=== PATIENT | male | born 1995 | race Caucasian/White ===

== ENCOUNTER 2017-11-12 11:25 | Emergency (ER) | payer BC ==
--- NOTE | 2017-11-12 11:37 | UC ---
Laceration HPI - History Of Current Complaint Stated Complaint: SUTURE REMOVAL Time Seen by Provider: 11/12/17 11:36 Discharge - Discharge Plan Referrals: No Primary Care Phys,NOPCP [Primary Care Provider] -
[2017-11-12 11:54] VITALS: BP 121/79
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
== END 2017-11-12 12:17 | disposition home or self-care (01) ==
LOC: UCEAST 11:25
DX: S01.01XD Laceration without foreign body of scalp, subsequent encounter (principal); X58.XXXD Exposure to other specified factors, subsequent encounter; Y92.9 Unspecified place or not applicable
CPT/HCPCS: 99201; G0463